=== PATIENT | female | born 1975 | race Caucasian/White ===

== ENCOUNTER 2022-09-20 10:44 | Outpatient (CLI) | payer MEDICAID, SELFPAY ==
--- NOTE | ~2022-09-20 | XR_ITS ---
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 A catheter was inserted into the patient's rectum. Contra st was infused by gravity. Gas was infused by hand pump. Fluoroscopic spot images and conventional ra diographs were obtained. Fluoroscopy exposure time was 1.5 minutes. A total of 39 fluoroscopic images and 13 overhead radiographs were obtained. Total DAP was 114.791 Gycm^2 COMPARISON: None. FINDINGS: There is visualization of the complete colon which demonstrates no mucosal irregularities or strictur es, polyps or other concerning filling defects. There is contrast filling and subsequent emptying of the appendix. Cholecystectomy clips in right upper quadrant. IMPRESSION: 1. Normal double contrast barium enema. Reviewed, dictated and finalized at location A.
== END 2022-09-20 10:45 | disposition home or self-care (01) ==
LOC: ANHIMG 10:45
PROVIDERS: PCP Internal Medicine; Visit Provider Internal Medicine Gastroenterology
DX: Z12.11 Encounter for screening for malignant neoplasm of colon (principal)
CPT/HCPCS: 74280

== ENCOUNTER 2022-09-20 13:18 | Outpatient (CLI) | payer MEDICAID, SELFPAY ==
--- NOTE | ~2022-09-20 | MMUS_ITS ---
EXAMINATION: MM diagnostic debbie BI w teresita, US breast BI complete HISTORY: Palpable right breast lump TECHNIQUE: Additional 3-D tomosynthesis images of the breasts were performed and synthetic 2-D images were generated. CAD analysis was submitted and interpreted. High resolution complete bilateral breas t ultrasound was performed. COMPARISON: None BREAST PARENCHYMAL COMPOSITION: The breasts are heterogeneously dense, which may obscure small masses FINDINGS: MAMMOGRAPHIC FINDINGS: There are obscured breast masses involving the upper outer quadrant of the right breast and lower out er quadrant of the left breast. There are no suspicious calcifications or architectural distortion. ULTRASOUND: Complete bilateral US of all 4 quadrants of the breasts and retroareolar region was reviewed. Right breast: At 12:00, 4 cm from the nipple, there is an oval hypoechoic mass measuring 5 mm without significant posterior features or internal vascularity. No other discrete mass identified. Left breast: At 3:00, 4 cm from the nipple there is a 4 mm cyst. No other discrete mass identified. IMPRESSION: 1. Probable benign bilateral breast findings. 2. Recommend 6 month follow-up diagnostic bilateral mammogram and ultrasound BI-RADS category 3, probably benign findings. Reviewed, dictated and finalized at location A. IMPRESSION: 1. Probable benign bilateral breast findings. 2. Recommend 6 month follow-up diagnostic bilateral mammogram and ultrasound BI-RADS category 3, probably benign findings.
== END 2022-09-20 13:19 | disposition home or self-care (01) ==
LOC: ANHIMG 13:19
PROVIDERS: PCP Internal Medicine
DX: R92.8 Other abnormal and inconclusive findings on diagnostic imaging of breast (principal)
CPT/HCPCS: 74280; 76641; 77062; 77066; G0279

== ENCOUNTER 2022-10-24 01:36 | Emergency (ER) | payer OTHER, SELFPAY ==
[2022-10-24 01:41] VITALS: BP 151/87; PULSE 81; RESP 16; TEMP 36.7; O2SAT 100
[2022-10-24 02:00] LABS: Basophils Absolute Auto 0.1 K/mm3 (0.0-0.1); Basophils Percent Auto 0.8 % (0.2-1.2); Eosinophils Absolute Auto 0.1 K/mm3 (0-0.3); Eosinophils Percent Auto 1.3 % (0-4.4); Hematocrit 39.2 % (37.0-47.0); Hemoglobin 13.3 g/dL (12.0-15.0); Immature Granulocyte Absolute 0.02 K/mm3 (0.00-0.031); Immature Granulocyte Percent A 0.2 % (0-0.5); Lymphocytes Absolute Auto 1.48 K/mm3 (0.9-3.2); Mean Corpuscular HGB Conc 33.9 g/dl (32-36); Mean Corpuscular Hemoglobin 31.3 pg (26-34); Mean Corpuscular Volume 92.2 fl (80-100); Mean Platelet Volume 10.2 fl (7.4-10.4); Monocytes Absolute Auto 0.6 K/mm3 (0.1-0.6); Monocytes Percent Auto 6.9 % (2.6-8.5); Neutrophils Absolute Auto 6.9 K/mm3 (1.3-6.7); Neutrophils Percent Auto 74.8 % (45.5-73.1); Platelet Count Result 237 k/mm3 (150-375); Red Blood Count 4.25 M/mm3 (4.2-5.4); Red Cell Distribution Width 13.5 % (11.5-14.5); White Blood Count 9.3 K/mm3 (4.5-10.0)
[2022-10-24 02:09] VITALS: BP 156/92; PULSE 78; RESP 14; O2SAT 99
[2022-10-24 02:10] VITALS: PULSE 77; RESP 16; O2SAT 97
[2022-10-24 02:31] LABS: Alanine Aminotransferase 23 U/L (6-35); Albumin Level 4.6 g/dL (3.5-5.1); Alkaline Phosphatase 66 U/L (38-126); Anion Gap 6 mmol/L (8-16); Aspartate Amino Transferase 23 U/L (14-36); Bilirubin,Total 1.4 mg/dL (0.2-1.3); Blood Urea Nitrogen 12 mg/dL (7-17); Calcium 9.1 mg/dL (8.4-10.2); Carbon Dioxide 30 mmol/L (22-30); Chloride 102 mmol/L (98-107); Estimated CRCL calculation 116 ml/min; Estimated Glomerular Filt Rate > 60; Glucose 100 mg/dL (65-110); Lipase 59 U/L (23-300); Potassium 4.2 mmol/L (3.4-5.0); Sodium 138 mmol/L (137-145)
[2022-10-24 02:33] VITALS: PULSE 77; RESP 15; O2SAT 98
[2022-10-24 02:40] LABS: Appearance Urine Clear (Clear); Bilirubin Urine Negative (Negative); Blood Urine Negative (Negative); Color Urine Yellow (Yellow); Glucose Urine UA Negative (Negative); Ketones Urine Negative (Negative); Leukocyte Esterase Ur Negative LEU/UL (Negative); Nitrate Urine Negative (Negative); Protein Urine Negative (Negative); Specific Grav Ur 1.021 (1.001-1.035)
[2022-10-24 02:44] LABS: Add Urine Microscopic? NO
[2022-10-24 02:55] VITALS: BP 158/96; PULSE 76; RESP 13; O2SAT 99
--- NOTE | 2022-10-24 03:11 | ED.GENADULT ---
HPI - General Adult General Chief complaint: Abdominal Pain Stated complaint: lower abd/flank pain Time Seen by Provider: 10/24/22 02:58 History of Present Illness HPI narrative: 47-year-old female history of hypertension presenting with left flank pain. Patient for the last several days she has been having left sharp pain sometimes in the front around sometimes in the back. This been intermittent, nonradiating. She reports today noticing a rash in that same area. Presented to the ED for further evaluation. She denied fevers, chills, nausea, vomiting, dysuria, hematuria, chest pain, shortness of breath, diarrhea, sick contacts. Past medical history: Hypertension Past surgical history: Hysterectomy Medications: Losartan Allergies no known drug allergies Related Data Home Medications Medication Instructions Recorded Confirmed albuterol sulfate 90 mcg/actuation 2 puff inhalation Q4-6H PRN 02/20/20 04/16/21 aerosol inhaler (ProAir HFA) Allergies Allergy/AdvReac Type Severity Reaction Status Date / Time No Known Allergies Allergy Verified 10/24/22 02:05 Review of Systems Review of Systems: See HPI [facility] Past Medical History Medical History Eczema Hypercholesterolemia Surgical History Surgical History History of hysterectomy Family History Family History Grandparent Diabetes mellitus Cerebrovascular accident Carcinoma of colon Father Heart problem History of heart bypass surgery Social History Social History Smoking status: Current every day smoker Alcohol intake: current Alcohol use details: rarely Exam Narrative: APPEARANCE: Alert, calm and cooperative, no acute distress, phonating, sitting comfortably during visit HEAD: atraumatic EYES: Pupils equal round an reactive to light, extra ocular movements intact, no conjunctival injection NOSE: Normal no drainage NECK: Supple, without meningismus RESPIRATORY: Lungs clear to auscultation bilaterally, no wheezes/rales/rhonchi, breathing comfortably CARDIOVASCULAR: Regular rate and rhythm, no visible jugular venous distension ABDOMINAL: Left lower quadrant left flank and left lower back with several erythematous papules, does not cross the midline, no crepitus, no fluctuance, no purulent discharge, soft, nontender, nondistended, no guarding, no rebound/peritoneal signs, no costovertebral tenderness to palpation BACK: no midline tenderness to palpation, no step offs EXTREMITIES: No edema, palpable peripheral pulses, warm, well perfused, no tenderness to bilateral calves. NEURO: Alert, moving all extremities symmetrically, ambulating with steady gait SKIN:: Warm, dry. Normal color PSYCHIATRIC: Normal affect/mood Course Vital Signs Vital signs: Vital Signs Temperature 98.0 F 10/24/22 01:41 Pulse Rate 81 10/24/22 01:41 Respiratory Rate 16 10/24/22 01:41 Blood Pressure 151/87 H 10/24/22 01:41 Pulse Oximetry 100 10/24/22 01:41 Oxygen Delivery Room Air 10/24/22 01:41 Temperature 98.0 F 10/24/22 01:41 Pulse Rate 76 10/24/22 02:55 Respiratory Rate 13 10/24/22 02:55 Blood Pressure 158/96 H 10/24/22 02:55 Pulse Oximetry 99 10/24/22 02:55 Oxygen Delivery Room Air 10/24/22 01:41 Medical Decision Making MDM Narrative Medical decision making narrative: Medical Decision Making 47-year-old female presents with several days of left flank pain and left anterior sharp pain, with appearance of erythematous papules today. Physical exam otherwise unremarkable, sitting comfortably, abdomen soft, vitals within normal limits. History and exam suggestive of zoster. Findings communicated to patient expressed understanding Bloodwork reviewed, noted to be unremarkable. Physical exam benign, vitals
[2022-10-24 03:27] VITALS: BP 164/94; PULSE 78; RESP 14; O2SAT 99
== END 2022-10-24 03:28 | disposition home or self-care (01) ==
PROVIDERS: Emergency Provider Emergency Medicine; PCP Internal Medicine
DX: B02.9 Zoster without complications (principal); I10 Essential (primary) hypertension; F17.200 Nicotine dependence, unspecified, uncomplicated
CPT/HCPCS: 36415; 80053; 81003; 83690; 85025; 99283

== ENCOUNTER 2023-09-13 10:16 | Outpatient (CLI) | payer OTHER, SELFPAY ==
--- NOTE | ~2023-09-13 | MMUS_ITS ---
EXAMINATION: MM diagnostic debbie BI w teresita, US breast BI complete HISTORY: Six-month follow-up of probable benign bilateral breast findings was recommended on bilateral diagnostic mammogram and bilateral complete breast ultrasound examination TECHNIQUE: ML, MLO and CC full field and spot 3-D tomosynthesis images of both breasts were performed and synthetic 2-D images were generated. CAD analysis was submitted and interpreted. High resolution complete bilateral breast ultrasound examination including all 4 quadrants and subareolar areas was performed. COMPARISON: 09/20/2022 bilateral diagnostic mammography and bilateral complete breast ultrasound exami [place] 12/02/2014 complete bilateral breast ultrasound examination bilateral screening mammogram BREAST PARENCHYMAL COMPOSITION: The breasts are heterogeneously dense, which may obscure small masses . FINDINGS: MAMMOGRAPHIC FINDINGS: Chronic bilateral mammographic asymmetry is again noted. No definite focal mass lesion or any lytic calcification, skin thickening or retraction is noted. The asymmetry and heterogeneously dense stroma may obscure masses. Bilateral complete breast ultrasou nd examination was performed. ULTRASOUND: Right breast: 11:00 6 cm from nipple: There is approximately 3 x 10 mm irregular incompletely circumscribed area of hypoechogenicity with abnormal color flow signal. Ultrasound-guided biopsy of this area is recommend ed. 10:00 3 cm from nipple: 5.5 x 5.9 mm hypoechoic lesion without internal vascularity or posterior shad owing, likely benign Left breast: 2:00 5 cm from nipple: 4 mm cyst 3:00 1 cm from nipple: 2.9 x 5.8 mm cyst IMPRESSION: 1. Irregular incompletely circumscribed hypoechoic area with increased vascularity at right breast 11 :00 6 cm from nipple 2. Ultrasound-guided biopsy of right breast 11:00 lesion is recommended BI-RADS category 4, suspicious findings. Dr. Leiva telephoned the report and ultrasound-guided biopsy recommendation of the right breast 11:00 lesion on 09/13/2023 at 1245 hours to Sury Oliveira at [phone] Reviewed, dictated and finalized at location A. IMPRESSION: 1. Irregular incompletely circumscribed hypoechoic area with increased vascular ity at right breast 11:00 6 cm from nipple 2. Ultrasound-guided biopsy of right breast 11:00 lesion is recommended BI-RADS category 4, suspicious findings. Dr. Leiva telephoned the report and ultrasound-guided biopsy recommendation of t carlos right breast 11:00 lesion on 09/13/2023 at 1245 hours to Sury Oliveira at [phone] IMPRESSION: 1. Irregular incompletely circumscribed hypoechoic area with increased vascular ity at right breast 11:00 6 cm from nipple 2. Ultrasound-guided biopsy of right breast 11:00 lesion is recommended BI-RADS category 4, suspicious findings. Dr. Leiva telephoned the report and ultrasound-guided biopsy recommendation of t carlos right breast 11:00 lesion on 09/13/2023 at 1245 hours to Sury Oliveira at [phone]
== END 2023-09-13 10:17 | disposition home or self-care (01) ==
PROVIDERS: PCP Internal Medicine; Visit Provider Nurse Practitioner Family
DX: R92.8 Other abnormal and inconclusive findings on diagnostic imaging of breast (principal)
CPT/HCPCS: 76641; 77062; 77066; G0279